=== PATIENT | female | born 1965 | race Caucasian/White ===

== ENCOUNTER → 2018-08-17 | Day surgery (SDC) | payer OTHER ==
[~2018-08-17] MED LIST: FENTANYL CITRATE/PF 100MCG/2 ML INJ ONE; GLUCAGON FOR INJ 1 MG VIAL ONE; HYOSCYAMINE SULFATE 0.5 MG/ML INJ ONE; MIDAZOLAM HCL 2 MG/2 ML VIAL ONE; PROPOFOL IV EMULSION 10 MG/ML 50 ML VIAL ONE
--- OUTSIDE RECORDS SUMMARY | 2018-08-17 06:09 | XMS REPORT | Encounter Summary ---
Author Organization Unknown Address [address] [place] [address] Phone [phone] Care Team Providers Care Freezing Room Worker Name Role Phone Toshia Ascencio MD 3 [phone] Reason for Visit Medical Complaint Instructions 1. Dysuria painful urination (dysuria): care instructions urinalysis, dipstick Bactrim DS 800 mg-160 mg tablet culture, urine 2. Blood in urine Discussion Note: None recorded. Plan of Care Patient Instructions take antibiotics as prescribed. increase fluids. otc tylenol or ibuprofen prn for pain. will contact patient when results of culture are finalized. follow up pcp Reminders Provider Appointments None recorded. Lab Urinalysis, Dipstick 08/26/2016 [facility] Clinic Culture, Urine 08/26/2016 [facility] Referral None recorded. Procedures None recorded. Surgeries None recorded. Imaging None recorded. Medications Name Start Date Bactrim DS 800 mg-160 mg tablet Take 1 tablet every 12 hours by oral route for 7 days. Medications Administered None recorded. Vitals Height Weight BMI Blood Pressure 5 ft 1 in 165 lbs 31.2 122/70 Lab Results Date Name Result Description Value Range Status Urinalysis, Dipstick Color : Jazmine Clarity : Cloudy Leukocytes : Large Nitrites : Negative Urobilinogen : Normal Protein : 100 Ph : 5.0 Blood : Large Specific [place] : 1.015 Ketones : Negative Bilirubin : Negative Glucose Negative Allergies Name Reaction Severity Onset NKDA Problems None recorded. Procedures Date Name Performed by Tubal Ligation Information not available Hysterectomy Information not available Vaccine List None recorded. Social History Smoking Status Never Smoker Past Encounters 08/26/2016 Dysuria; Blood in Urine CALLIE Agustin-C: [address] [place] [address], Ph. History of Present Illness [id number] Reported By: Patient HPI: Location: urethra. Quality: pressure, burning. Severity: same. Duration: constant. Onset/Timing: gradual. Context: not sexually active, no known exposure to STD, no prior history of STDs, history of urine cultures/antibiotic treatment. Modifying factors OTC medication. Associated Symptoms: no fever/chills, no flank pain, no jaundice, no blood in the urine, no pain during urination, no vaginal discharge, no blisters on genitals, no rash on genitals, no muscle aches, no headache, painful inability to urinate, urgency, urinary frequency Review of Systems:ROS as noted in the HPI Review of Systems Basic Reported By: Patient Physical Exam Adult Basic, Adult Female Complete Reported By: Patient
--- OUTSIDE RECORDS SUMMARY | 2018-08-17 06:09 | XMS REPORT | Encounter Summary ---
Author Organization Unknown Address [address] [place] [address] Phone [phone] Reason for Visit Medical Complaint Instructions 1. Dysuria painful urination (dysuria): care instructions urinalysis, dipstick Macrobid 100 mg capsule culture, urine Discussion Note: None recorded. Plan of Care Patient Instructions take antibiotics as prescribed. increase fluids. otc tylenol or ibuprofen prn for pain. will contact patient when results of culture are finalized. follow up pcp Reminders Provider Appointments None recorded. Lab Urinalysis, Dipstick 10/10/2016 [facility] Culture, Urine 10/10/2016 [facility] Referral None recorded. Procedures None recorded. Surgeries None recorded. Imaging None recorded. Medications Name Start Date Macrobid 100 mg capsule Take 1 capsule every 12 hours by oral route for 7 days. Rynatan 9 mg-25 mg tablet Take 1 tablet twice a day by oral route as needed for congestino. Zithromax Z-David 250 mg tablet Take 2 tablets (500 mg) by oral route once daily for 1 day then 1 tablet (250 mg) by oral route once daily for 4 days Medications Administered None recorded. Vitals Height Weight BMI Blood Pressure 5 ft 2 in 160 lbs 29.3 102/76 Lab Results Date Name Specimen Result Interpretation Description Value Range Status Address Urinalysis, Dipstick Color : Yellow [facility]: [address] [place] [address] Clarity : Clear [facility]: [address] [place] [address] Leukocytes : Moderate [facility]: [address] [place] [address] Nitrites : Negative [facility]: [address] [place] [address] Urobilinogen : Normal [facility]: [address] [place] [address] Protein : Negative [facility]: [address] [place] [address] Ph : 5.5 [facility]: [address] [place] [address] Blood : Small [facility]: [address] [place] [address] Specific [place] : 1.015 [facility]: [address] [place] [address] Ketones : Negative [facility]: [address] [place] [address] Bilirubin : Negative [facility]: [address] [facility] Glucose Negative [facility]: [address] [facility] Allergies Code Code System Name Reaction Severity Onset NKDA Problems Name Status Onset Date Source Acute Upper Respiratory Infection Active Encounter Procedures Date Name Performed by Hysterectomy Information not available Tubal Ligation Information not available Vaccine List None recorded. Social History Smoking Status Never Smoker Past Encounters 10/10/2016 Dysuria Mathew Arora, [facility]-C: [address] [place] [address], Ph. History of Present Illness [id number] Reported By: Patient HPI: Location: urethra. Quality: pressure, burning. Severity: same. Duration: constant. Onset/Timing: gradual. Context: history of urine cultures/antibiotic treatment, wipes anterior to posterior, voids after intercourse. Modifying factors OTC medication. Associated Symptoms: no fever/chills, no flank pain, no jaundice, no blood in the urine, no pain during urination, no vaginal discharge, no blisters on genitals, no rash on genitals, no muscle aches, no headache, burning sensation during urination, urgency, urinary frequency Review of Systems:ROS as noted in the HPI Review of Systems Basic Reported By: Patient Physical Exam Adult Basic, Adult Female Complete Reported By: Patient Constitutional: General Appearance: healthy-appearing, well-nourished, well-developed. Level of Distress: NAD. Ambulation: ambulating normally Psychiatric: Mental Status: active and alert Lungs: Respiratory effort: no dyspnea, no tachypnea, no use of accessory muscles, no intercostal retractions. Auscultation: breath sounds normal Cardiovascular: Heart Auscultation: RRR, no murmurs Abdomen: Inspection and Palpation: soft, non-distended, no tenderness, no guarding, no rebound tenderness, no masses, no CVA tenderness
--- OUTSIDE RECORDS SUMMARY | 2018-08-17 06:09 | XMS REPORT | Encounter Summary ---
Author Organization Unknown Address [address] [place] [address] Phone [phone] Care Team Providers Care Typesetter Perforator Operator Name Role Phone Toshia Ascencio MD 3 [phone] Reason for Visit Medical Complaint Instructions 1. [...] Appointments None recorded. Lab Urinalysis, Dipstick 08/26/2016 [facility] Culture, Urine 08/26/2016 [facility] Referral None [...] Ph : 5.0 Blood : Large Specific [place] : 1.015 Ketones : Negative Bilirubin : Negative Glucose Negative Allergies Name Reaction Severity Onset NKDA Problems None recorded. Procedures Date Name Performed by Tubal Ligation Information not available Hysterectomy Information not available Vaccine List None recorded. Social History Smoking Status Never Smoker Past Encounters 08/26/2016 Dysuria; Blood in Urine CALLIE Agustin-C: [address] [place] [address], Ph. History of Present Illness [id number] Reported By: Patient HPI: Location: urethra. Quality: [...]
--- OUTSIDE RECORDS SUMMARY | 2018-08-17 06:09 | XMS REPORT | Encounter Summary ---
Author Organization Unknown Address [address] [place] [address] Phone [phone] Care Team Providers Care Senior Data Architect Name Role Phone Toshia Ascencio MD 3 [phone] Reason for Visit Medical Complaint Instructions 1. [...] Appointments None recorded. Lab Urinalysis, Dipstick 08/26/2016 [facility] Clinic Culture, Urine 08/26/2016 [facility] Referral None [...] Ph : 5.0 Blood : Large Specific [place] : 1.015 Ketones : Negative Bilirubin : Negative Glucose Negative Allergies Name Reaction Severity Onset NKDA Problems None recorded. Procedures Date Name Performed by Tubal Ligation Information not available Hysterectomy Information not available Vaccine List None recorded. Social History Smoking Status Never Smoker Past Encounters 08/26/2016 Dysuria; Blood in Urine CALLIE Agustin-C: [address] [place] [address], Ph. History of Present Illness [id number] Reported By: Patient HPI: Location: urethra. Quality: [...] Level of Distress: NAD. Ambulation: ambulating normally Lungs: Respiratory effort: no dyspnea, no tachypnea, no use of accessory muscles, no intercostal retractions. Auscultation: breath sounds normal Cardiovascular: Heart Auscultation: RRR, no murmurs Abdomen: Inspection and Palpation: soft, non-distended, no tenderness, no guarding, no rebound tenderness, no masses, no CVA tenderness
--- OUTSIDE RECORDS SUMMARY | 2018-08-17 06:09 | XMS REPORT | Continuity of Care Document ---
Author Author [facility] Interface Address Unknown Phone Unavailable Problems Problem Status Onset Date Classification Date Reported Comments Source Acute urinary tract infection 04/15/2017 Diagnosis 05/09/2017 [facility] Urinary tract infectious disease 11/01/2016 Diagnosis 11/01/2016 [facility] Dysuria 10/10/2016 Diagnosis 11/01/2016 [facility] Blood in urine 08/26/2016 Diagnosis 08/27/2016 [facility] Acute Upper Respiratory Infection Problem 05/09/2017 [facility] Medications Medication Details Route Status Patient Instructions Ordering Provider Order Date Source Sulfamethoxazole 800 MG / Trimethoprim 160 MG Oral Tablet [Bactrim] Bactrim DS 800 mg-160 mg tablet Take 1 tablet every 12 hours by oral route for 7 days. Active [facility] Carisoprodol 350 MG Oral Tablet carisoprodol 350 mg tablet Active [facility] Ciprofloxacin 500 MG Oral Tablet ciprofloxacin 500 mg tablet Take 1 tablet every 12 hours by oral route as directed for 7 days. Active [facility] NITROFURANTOIN, MACROCRYSTALS 25 MG / Nitrofurantoin, Monohydrate 75 MG Oral Capsule [Macrobid] Macrobid 100 mg capsule Take 1 capsule every 12 hours by oral route for 7 days. Active [facility] Chlorpheniramine Tannate 9 MG / Phenylephrine Tannate 25 MG Oral Tablet Rynatan 9 mg-25 mg tablet Take 1 tablet twice a day by oral route as needed for congestino. Active [facility] Azithromycin 250 MG Oral Tablet Zithromax Z-David 250 mg tablet Take 2 tablets (500 mg) by oral route once daily for 1 day then 1 tablet (250 mg) by oral route once daily for 4 days Active [facility] Acetaminophen 300 MG / Codeine Phosphate 30 MG Oral Tablet acetaminophen 300 mg-codeine 30 mg tablet Active [facility] Ciprofloxacin 500 MG Oral Tablet [Cipro] Cipro 500 mg tablet Take 1 tablet every 12 hours by oral route for 7 days. Active [facility] Diazepam 5 MG Oral Tablet diazepam 5 mg tablet Active [facility] methylprednisolone 4 mg tablets in a dose pack methylprednisolone 4 mg tablets in a dose pack Active [facility] Metronidazole 0.0075 MG/MG Vaginal Gel metronidazole 0.75 % vaginal gel Active [facility] NITROFURANTOIN, MACROCRYSTALS 25 MG / Nitrofurantoin, Monohydrate 75 MG Oral Capsule nitrofurantoin monohydrate/macrocrystals 100 mg capsule TAKE ONE (1) CAPSULE(S) BY MOUTH EVERY TWELVE HOURS FOR 7 DAYS. Active [facility] Sulfamethoxazole 800 MG / Trimethoprim 160 MG Oral Tablet sulfamethoxazole 800 mg-trimethoprim 160 mg tablet Active [facility] tramadol hydrochloride 50 MG Oral Tablet tramadol 50 mg tablet Active [facility] Allergies, Adverse Reactions, Alerts Substance Category Reaction Severity Reaction type Status Date Reported Comments Source Immunizations Immunization Date Given Site Status Last Updated Comments Source Results Order Name Results Value Reference Range Date Interpretation Comments Source Urinalysis macro (dipstick) panel - Urine COLOR : Yellow 05/09/2017 [facility] Urinalysis macro (dipstick) panel - Urine CLARITY : Cloudy 05/09/2017 [facility] Urinalysis macro (dipstick) panel - Urine LEUKOCYTES : Large 05/09/2017 [facility] Urinalysis macro (dipstick) panel - Urine NITRITES : Positive 05/09/2017 [facility] Urinalysis macro (dipstick) panel - Urine UROBILINOGEN : 2 05/09/2017 [facility] Urinalysis macro (dipstick) panel - Urine PROTEIN : 300 05/09/2017 [facility] Urinalysis macro (dipstick) panel - Urine pH : 6.0 05/09/2017 [facility] Urinalysis macro (dipstick) panel - Urine BLOOD : Small 05/09/2017 [facility] Urinalysis macro (dipstick) panel - Urine SPECIFIC GRAV[place] : 1.015 05/09/2017 [facility] Urinalysis macro (dipstick) panel - Urine KETONES : Negative 05/09/2017 [facility] Urinalysis macro (dipstick) panel - Urine BILIRUBIN : Negative 05/09/2017 [facility] Urinalysis macro (dipstick) panel - Urine GLUCOSE Negative 05/09/2017 [facility] Urinalysis macro (dipstick) panel - Urine COLOR : Yellow 05/09/2017 [facility] Urinalysis macro (dipstick) panel - Urine CLARITY : Turbid 05/09/2017 [facility] Urinalysis macro (dipstick) panel - Urine LEUKOCYTES : Large 05/09/2017 [facility] Urinalysis macro (dipstick) panel - Urine NITRITES : Negative 05/09/2017 [facility] Urinalysis macro (dipstick) panel - Urine UROBILINOGEN : Normal 05/09/2017 [facility] Urinalysis macro (dipstick) panel - Urine PROTEIN : Negative 05/09/2017 [facility] Urinalysis macro (dipstick) panel - Urine pH : 7.5 05/09/2017 [facility] Urinalysis macro (dipstick) panel - Urine BLOOD : Negative 05/09/2017 [facility] Urinalysis macro (dipstick) panel - Urine SPECIFIC GRAVITY : 1.015 05/09/2017 [facility] Urinalysis macro (dipstick) panel - Urine KETONES : Negative 05/09/2017 [facility] Urinalysis macro (dipstick) panel - Urine BILIRUBIN : Negative 05/09/2017 [facility] Urinalysis macro (dipstick) panel - Urine GLUCOSE Negative 05/09/2017 [facility] Bacteria identified in Urine by Culture Bacteria identified in Urine by Culture Urine Culture, Routine 04/17/2017 abnormal [facility] Bacteria identified in Urine by Culture Other Antibiotic [Susceptibility] Antimicrobial Susceptibility 04/17/2017 [facility] Urinalysis macro (dipstick) panel - Urine COLOR : Yellow 04/15/2017 [facility] Urinalysis macro (dipstick) panel - Urine CLARITY : Turbid 04/15/2017 [facility] Urinalysis macro (dipstick) panel - Urine LEUKOCYTES : Large 04/15/2017 [facility] Urinalysis macro (dipstick) panel - Urine NITRITES : Negative 04/15/2017 [facility] Urinalysis macro (dipstick) panel - Urine UROBILINOGEN : Normal 04/15/2017 [facility] Urinalysis macro (dipstick) panel - Urine PROTEIN : Negative 04/15/2017 [facility] Urinalysis macro (dipstick) panel - Urine pH : 7.5 04/15/2017 [facility] Urinalysis macro (dipstick) panel - Urine BLOOD : Negative 04/15/2017 [facility] Urinalysis macro (dipstick) panel - Urine SPECIFIC GRAVITY : 1.015 04/15/2017 [facility] Urinalysis macro (dipstick) panel - Urine KETONES : Negative 04/15/2017 [facility] Urinalysis macro (dipstick) panel - Urine BILIRUBIN : Negative 04/15/2017 [facility] Urinalysis macro (dipstick) panel - Urine GLUCOSE Negative 04/15/2017 [facility] Urinalysis macro (dipstick) panel - Urine COLOR : Yellow 11/01/2016 [facility] Urinalysis macro (dipstick) panel - Urine CLARITY : Clear 11/01/2016 [facility] Urinalysis macro (dipstick) panel - Urine LEUKOCYTES : Moderate 11/01/2016 [facility] Urinalysis macro (dipstick) panel - Urine NITRITES : Negative 11/01/2016 [facility] Urinalysis macro (dipstick) panel - Urine UROBILINOGEN : 1 11/01/2016 [facility] Urinalysis macro (dipstick) panel - Urine PROTEIN : 100 11/01/2016 [facility] Urinalysis macro (dipstick) panel - Urine pH : 5.0 11/01/2016 [facility] Urinalysis macro (dipstick) panel - Urine BLOOD : Moderate 11/01/2016 [facility] Urinalysis macro (dipstick) panel - Urine SPECIFIC GRAVITY : 1.015 11/01/2016 [facility] Urinalysis macro (dipstick) panel - Urine KETONES : Negative 11/01/2016 [facility] Urinalysis macro (dipstick) panel - Urine BILIRUBIN : Negative 11/01/2016 [facility] Urinalysis macro (dipstick) panel - Urine GLUCOSE Negative 11/01/2016 [facility] Urinalysis macro (dipstick) panel - Urine COLOR : Yellow 11/01/2016 [facility] Urinalysis macro (dipstick) panel - Urine CLARITY : Clear 11/01/2016 [facility] Urinalysis macro (dipstick) panel - Urine LEUKOCYTES : Moderate 11/01/2016 [facility] Urinalysis macro (dipstick) panel - Urine NITRITES : Negative 11/01/2016 [facility] Urinalysis macro (dipstick) panel - Urine UROBILINOGEN : Normal 11/01/2016 [facility] Urinalysis macro (dipstick) panel - Urine PROTEIN : Negative 11/01/2016 [facility] Urinalysis macro (dipstick) panel - Urine pH : 5.5 11/01/2016 [facility] Urinalysis macro (dipstick) panel - Urine BLOOD : Small 11/01/2016 [facility] Urinalysis macro (dipstick) panel - Urine SPECIFIC GRAVITY : 1.015 11/01/2016 [facility] Urinalysis macro (dipstick) panel - Urine KETONES : Negative 11/01/2016 [facility] Urinalysis macro (dipstick) panel - Urine BILIRUBIN : Negative 11/01/2016 [facility] Urinalysis macro (dipstick) panel - Urine GLUCOSE Negative 11/01/2016 [facility] Bacteria identified in Urine by Culture Bacteria identified in Urine by Culture Urine Culture, Routine 10/12/2016 abnormal [facility] Bacteria identified in Urine by Culture Other Antibiotic [Susceptibility] Antimicrobial Susceptibility 10/12/2016 [facility] Urinalysis macro (dipstick) panel - Urine COLOR : Yellow 10/10/2016 [facility] Urinalysis macro (dipstick) panel - Urine CLARITY : Clear 10/10/2016 [facility] Urinalysis macro (dipstick) panel - Urine LEUKOCYTES : Moderate 10/10/2016 [facility] Urinalysis macro (dipstick) panel - Urine NITRITES : Negative 10/10/2016 [facility] Urinalysis macro (dipstick) panel - Urine UROBILINOGEN : Normal 10/10/2016 [facility] Urinalysis macro (dipstick) panel - Urine PROTEIN : Negative 10/10/2016 [facility] Urinalysis macro (dipstick) panel - Urine pH : 5.5 10/10/2016 [facility] Urinalysis macro (dipstick) panel - Urine BLOOD : Small 10/10/2016 [facility] Urinalysis macro (dipstick) panel - Urine SPECIFIC GRAVITY : 1.015 10/10/2016 [facility] Urinalysis macro (dipstick) panel - Urine KETONES : Negative 10/10/2016 [facility] Urinalysis macro (dipstick) panel - Urine BILIRUBIN : Negative 10/10/2016 [facility] Urinalysis macro (dipstick) panel - Urine GLUCOSE Negative 10/10/2016 [facility] Urinalysis macro (dipstick) panel - Urine COLOR : Jazmine 08/26/2016 [facility] Urinalysis macro (dipstick) panel - Urine CLARITY : Cloudy 08/26/2016 [facility] Urinalysis macro (dipstick) panel - Urine LEUKOCYTES : Large 08/26/2016 [facility] Urinalysis macro (dipstick) panel - Urine NITRITES : Negative 08/26/2016 [facility] Urinalysis macro (dipstick) panel - Urine UROBILINOGEN : Normal 08/26/2016 [facility] Urinalysis macro (dipstick) panel - Urine PROTEIN : 100 08/26/2016 [facility] Urinalysis macro (dipstick) panel - Urine pH : 5.0 08/26/2016 [facility] Urinalysis macro (dipstick) panel - Urine BLOOD : Large 08/26/2016 [facility] Urinalysis macro (dipstick) panel - Urine SPECIFIC GRAVITY : 1.015 08/26/2016 [facility] Urinalysis macro (dipstick) panel - Urine KETONES : Negative 08/26/2016 [facility] Urinalysis macro (dipstick) panel - Urine BILIRUBIN : Negative 08/26/2016 [facility] Urinalysis macro (dipstick) panel - Urine GLUCOSE Negative 08/26/2016 [facility] Vital Signs Vital Sign Value Date Comments Source Diastolic (mm Hg) 80 05/09/2017 [facility] Height 62 05/09/2017 [facility] Systolic (mm Hg) 122 05/09/2017 [facility] Weight 160 05/09/2017 [facility] Diastolic (mm Hg) 80 04/15/2017 [facility] Height 62 04/15/2017 [facility] Systolic (mm Hg) 114 04/15/2017 [facility] Weight 160 04/15/2017 [facility] Diastolic (mm Hg) 92 11/01/2016 [facility] Height 62 11/01/2016 [facility] Systolic (mm Hg) 142 11/01/2016 [facility] Weight 160 11/01/2016 [facility] Diastolic (mm Hg) 76 10/10/2016 [facility] Height 62 10/10/2016 [facility] Systolic (mm Hg) 102 10/10/2016 [facility] Weight 160 10/10/2016 [facility] Diastolic (mm Hg) 70 08/26/2016 [facility] Height 61 08/26/2016 [facility] Systolic (mm Hg) 122 08/26/2016 [facility] Weight 165 08/26/2016 [facility] Encounters Location Location Details Encounter Type Encounter Number Reason For Visit Attending Provider ADM Date DC Date Status Source [place] - [facility] - [id number] CALLIE Agustin-C: [address], [place] [address], Ph. [phone] [id number] Mathew Bonillaen 08/26/2016 [facility] [place] [facility] - [id number] CALLIE Agustin-C: [address], [place] [address], Ph. [phone] [id number] Mathew Heathuyen 08/26/2016 [facility] [place] [facility] - [id number] CALLIE Agustin-C: [address], [place] [address], Ph. [id number] Mathew Heathuyen 08/26/2016 [facility] [place] [facility] - [id number] CALLIE Agustin-C: [address], [place] [address], Ph. [id number] Mathew Bonillaen 10/10/2016 [facility] [place] [facility] - [id number] Mathew JORGE AroraP-C: [address], [place] [address], Ph. [id number] Mathew Bonillaen 10/10/2016 [facility] [place] [facility] - [id number] ERICA GabrielC: [address], [place] [address], Ph. [id number] Genia Raza 11/01/2016 [facility] [place] [facility] - [id number] Michelle Lexie, [employer]-C: [address] [place] [address], Ph. [id number] Michelle Hilarioy 04/15/2017 [facility] [place] [facility] - [id number] Angela Lexie, [employer]-C: [address] [place] [address], Ph. [id number] Michelle Keeroy 04/15/2017 [facility] [place] [facility] - [id number] Mathew Arora, [employer]-C: [address] [place] [address], Ph. [id number] Mathew Arora 05/09/2017 [facility] Procedures Procedure Code Date Perfomer Comments Source Tubal Ligation [facility] Hysterectomy [facility]
--- OUTSIDE RECORDS SUMMARY | 2018-08-17 06:10 | XMS REPORT | Encounter Summary ---
Author Organization Unknown Address [address] [place] [address] Phone [phone] Reason for Visit Medical Complaint Instructions 1. Acute urinary tract infection urinalysis, dipstick Macrobid 100 mg capsule culture, urine Discussion Note: None recorded. Patient educational handouts: No information available. Plan of Care Patient Instructions take antibiotics as prescribed. increase fluids. otc tylenol or ibuprofen prn for pain. will contact patient when results of culture are finalized. follow up pcp Reminders Provider Appointments None recorded. Lab Urinalysis, Dipstick 05/09/2017 [facility] Culture, Urine 05/09/2017 [facility] Referral None recorded. Procedures None recorded. Surgeries None recorded. Imaging None recorded. Medications Name Start Date Macrobid 100 mg capsule Take 1 capsule every 12 hours by oral route for 7 days. Medications Administered None recorded. Vitals Height Weight BMI Blood Pressure 5 ft 2 in 160 lbs 29.3 kg/m2 122/80 mm[Hg] Lab Results Date Name Specimen Result Interpretation Description Value Range Status Address 04/15/2017 Culture, Urine URINE ABNORMAL Urine Culture, Routine final report Final [facility]: [id number] [place] URINE ABNORMAL Result 1 escherichia coli Final [facility]: [address] URINE Antimicrobial Susceptibility mihead Final [facility]: [address] [place] Urinalysis, Dipstick Color : Yellow [facility]: [address] [place] [address] Clarity : Cloudy [facility]: [address] [place] [address] Leukocytes : Large [facility]: [address] [place] [address] Nitrites : Positive [facility]: [address] [place] [address] Urobilinogen : 2 [facility]: [address] [place] [address] Protein : 300 [facility]: [address] [place] [address] Ph : 6.0 [facility]: [address] [place] [address] Blood : Small [facility]: [address] [place] [address] Specific [place] : 1.015 [facility]: [address] [place] [address] Ketones : Negative [facility]: [facility] Bilirubin : Negative [facility]: [address] [place] [address] Glucose Negative [facility]: 9 [facility] Urinalysis, Dipstick Color : Yellow [facility]: 9 [facility] Clarity : Turbid [facility]: 9 [facility] Leukocytes : Large [facility]: 9 [facility] Nitrites : Negative [facility]: [address] [place] [address] Urobilinogen : Normal [facility]: 9 [facility] Protein : Negative [facility]: [address] [place] [address] Ph : 7.5 [facility]: [address] [place] [address] Blood : Negative [facility]: [address] [place] [address] Specific [place] : 1.015 [facility]: 9 [facility] Ketones : Negative [facility]: [address] [place] [address] Bilirubin : Negative [facility]: [address] [place] [address] Glucose Negative [facility]: [address] [place] [address] Allergies Code Code System Name Reaction Severity Status Onset NKDA Problems Name Status Onset Date Source Acute Upper Respiratory Infection Active Encounter Procedures Date Name Performed by Hysterectomy Information not available Tubal Ligation Information not available Vaccine List None recorded. Social History Smoking Status Never Smoker Past Encounters 05/09/2017 Acute Urinary Tract Infection Mathew Arora, [facility]: [address] [place] [address], Ph. 04/15/2017 Acute Urinary Tract Infection CALLIE Donis-[facility]: [address] [place] [address], Ph. History of Present Illness [id number] Reported By: Patient HPI: Location: urethra. Quality: pressure, burning. Severity: mild. Duration: constant. Context: history of urine cultures/antibiotic treatment, wipes anterior to posterior, voids after intercourse. Associated Symptoms: no fever/chills, no flank pain, [...]
--- OUTSIDE RECORDS SUMMARY | 2018-08-17 06:10 | XMS REPORT | Encounter Summary ---
Author Organization Unknown Address [address] [place] [address] Phone [phone] Reason for Visit Medical Complaint Instructions 1. Urinary tract infectious disease Cipro 500 mg tablet urinalysis, dipstick culture, urine Discussion Note: None recorded. Patient educational handouts: No information available. Plan of Care Patient Instructions Drink plenty of water and wear cotton underwear. Please finish all antibiotics, even if you are feeling better. This prevents the infection from coming back. Please seek care (urologist) if symptoms do not resolve in 1 week. Reminders Provider Appointments None recorded. Lab Urinalysis, Dipstick 11/01/2016 [facility] Culture, Urine 11/01/2016 [facility] Referral None recorded. Procedures None recorded. Surgeries None recorded. Imaging None recorded. Medications Name Start Date acetaminophen 300 mg-codeine 30 mg tablet carisoprodol 350 mg tablet Cipro 500 mg tablet Take 1 tablet every 12 hours by oral route for 7 days. diazepam 5 mg tablet methylprednisolone 4 mg tablets in a dose pack metronidazole 0.75 % vaginal gel nitrofurantoin monohydrate/macrocrystals 100 mg capsule TAKE ONE (1) CAPSULE(S) BY MOUTH EVERY TWELVE HOURS FOR 7 DAYS. Rynatan 9 mg-25 mg tablet Take 1 tablet twice a day by oral route as needed for congestino. sulfamethoxazole 800 mg-trimethoprim 160 mg tablet tramadol 50 mg tablet Zithromax Z-David 250 mg tablet Take 2 tablets (500 mg) by oral route once daily for 1 day then 1 tablet (250 mg) by oral route once daily for 4 days Medications Administered None recorded. Vitals Height Weight BMI Blood Pressure 5 ft 2 in 160 lbs 29.3 kg/m2 142/92 mm[Hg] Lab Results Date Name Specimen Result Interpretation Description Value Range Status Address 10/10/2016 Culture, Urine URINE ABNORMAL Urine Culture, Routine final report Final [facility]: [address], [place] URINE ABNORMAL Result 1 escherichia coli Final [facility]: [address], [place] URINE Antimicrobial Susceptibility mihead Final [facility]: [address], [place] Urinalysis, Dipstick Color : Yellow [facility]: [facility] Clarity : Clear [facility]: [facility] Leukocytes : Moderate [facility]: [facility] Nitrites : Negative [facility]: [facility] Urobilinogen : 1 [facility]: [address] [place] [address] Protein : 100 [facility]: [facility] Ph : 5.0 [facility]: [facility] Blood : Moderate [facility]: [facility] Specific [place] : 1.015 [facility]: [facility] Ketones : Negative [facility]: [facility] Bilirubin : Negative [facility]: [facility] Glucose Negative [facility]: [facility] Urinalysis, Dipstick Color : Yellow [facility]: [facility] Clarity : Clear [facility]: [facility] Leukocytes : Moderate [facility]: [facility] Nitrites : Negative [facility]: [facility] Urobilinogen : Normal [facility]: [facility] Protein : Negative [facility]: [facility] Ph : 5.5 [facility]: [facility] Blood : Small [facility]: [address] [place] [address] Specific [place] : 1.015 [facility]: [facility] Ketones : Negative [facility]: [address] [place] [address] Bilirubin : Negative [facility]: 9 [facility] Glucose Negative [facility]: [facility] Allergies Code Code System Name Reaction Severity Onset NKDA Problems Name Status Onset Date Source Acute Upper Respiratory Infection Active Encounter Procedures Date Name Performed by Hysterectomy Information not available Tubal Ligation Information not available Vaccine List None recorded. Social History Smoking Status Never Smoker Past Encounters 11/01/2016 Urinary Tract Infectious Disease Genia Raza PA-C: [address] [place] [address], Ph. 10/10/2016 Dysuria NITO AgustinC: [address] [place] [address], Ph. History of Present Illness [id number] Reported By: Patient HPI: Location: urethra. Quality: pain, pressure, burning. Severity: worsening. Duration: started 7 days. Onset/Timing: worse. Context: no known exposure to STD, no prior history of STDs, history of urine cultures/antibiotic treatment. Associated Symptoms: no fever/chills, no flank pain, no jaundice, no blood in the urine, no pain during urination, no vaginal discharge, no urgency, no blisters on genitals, no rash on genitals, burning sensation during urination, feeling of incomplete emptying of bladder Review of Systems Basic Reported By: Patient Constitutional: Constitutional: no fever Eyes: Eyes: no eye complaints [id number]-[id number]-Throat: Ears: no ear complaints. Nose: no nose/sinus problems. Mouth/Throat: no sore throat, no bleeding gums, no mouth complaints, no teeth problems Cardiovascular: Cardiovascular: no chest pain, no shortness of breath, no known heart murmur Respiratory: Respiratory: no cough, no wheezing, no shortness of breath Gastrointestinal: Gastrointestinal: no abdominal pain, no vomiting / diarrhea Genitourinary: Genitourinary: no discharge, dysuria Physical Exam Adult Basic, Adult Female Complete Reported By: Patient Constitutional: General Appearance: healthy-appearing, well-nourished, well-developed. Level of Distress: NAD. Ambulation: ambulating normally Psychiatric: Mental Status: active and alert. Orientation: to time, to place, to person Lungs: Respiratory effort: no dyspnea, no tachypnea, no use of accessory muscles, no intercostal retractions. Percussion: no dullness, flatness, or hyperresonance. Auscultation: breath sounds normal Cardiovascular: Heart Auscultation: RRR, no murmurs. Neck vessels: no carotid bruits. Pulses including femoral / pedal: normal throughout Abdomen: Inspection and Palpation: no CVA tenderness
--- OUTSIDE RECORDS SUMMARY | 2018-08-17 06:10 | XMS REPORT | Encounter Summary ---
Author Organization Unknown Address [address] [place] [address] Phone [phone] Reason for Visit Medical Complaint Instructions 1. Acute urinary tract infection ciprofloxacin 500 mg tablet urinalysis, dipstick culture, urine Discussion Note Pt is in NAD; Verbalizes understanding of all instructions with no questions at this time. Patient educational handouts: No information available. Plan of Care Patient Instructions Recommend proper hydration and frequent urination. Avoid douching, Recommend urinating after sexual intercourse. Recommend wipe front to back after urinating. Avoid using tubs. Take medications as prescribed. Return to clinic or follow up with your PCP or a urologist within 2-3 days if symptoms worsen as discussed. Reminders Provider Appointments None recorded. Lab Urinalysis, Dipstick 04/15/2017 [facility] Culture, Urine 04/15/2017 [facility] Referral None recorded. Procedures None recorded. Surgeries None recorded. Imaging None recorded. Medications Name Start Date carisoprodol 350 mg tablet ciprofloxacin 500 mg tablet Take 1 tablet every 12 hours by oral route as directed for 7 days. Medications Administered None recorded. Vitals Height Weight BMI Blood Pressure 5 ft 2 in 160 lbs 29.3 kg/m2 114/80 mm[Hg] Lab Results Date Name Specimen Result Interpretation Description Value Range Status Address Urinalysis, Dipstick Color : Yellow [facility]: [address] [place] [address] Clarity : Turbid [facility]: [address] [place] [address] Leukocytes : Large [facility]: [address] [place] [address] Nitrites : Negative [facility]: [address] [place] [address] Urobilinogen : Normal [facility]: [address] [place] [address] Protein : Negative [facility]: [address] [place] [address] Ph : 7.5 [facility]: [address] [place] [address] Blood : Negative [facility]: [address] [place] [address] Specific [place] : 1.015 [facility]: [address] [place] [address] Ketones : Negative [facility]: [address] [place] [address] Bilirubin : Negative [facility]: 9 [facility] Glucose Negative [facility]: 9 [facility] Allergies Code Code System Name Reaction Severity Status Onset NKDA Problems Name Status Onset Date Source Acute Upper Respiratory Infection Active Encounter Procedures Date Name Performed by Hysterectomy Information not available Tubal Ligation Information not available Vaccine List None recorded. Social History Smoking Status Never Smoker Past Encounters 04/15/2017 Acute Urinary Tract Infection Michelle Keeroy, [facility]: [address] [place] [address], Ph. History of Present Illness [id number] Reported By: Patient HPI: Location: urethra; bladder. Quality: pain, pressure. Severity: worsening, moderate. Duration: constant. Onset/Timing: worse, gradual. Context: no known exposure to STD, no prior history of STDs, sexually active, heterosexual, vaginal intercourse, history of urine cultures/antibiotic treatment, wipes anterior to posterior, voids after intercourse. Modifying factors nothing makes it worse. Associated Symptoms: no fever/chills, no jaundice, no blood in the urine, no vaginal discharge, no blisters on genitals, no rash on genitals, no muscle aches, no headache, flank pain, pain during urination, urinary frequency; bladder pressure Review of Systems:ROS as noted in the HPI Review of Systems Basic Reported By: Patient Physical Exam Adult Basic, Adult Female Complete, Adult Male Complete Reported By: Patient Constitutional: General Appearance: healthy-appearing, well-nourished, well-developed. Level of Distress: NAD. Ambulation: ambulating normally Psychiatric: Mental Status: active and alert. Orientation: to time, to place, to person Eyes: Lids and Conjunctivae: non-injected, no pallor; no periorbital edema Neck: Neck: supple. Lymph Nodes: no cervical LAD Lungs: Respiratory effort: no dyspnea, no tachypnea, no use of accessory muscles, no intercostal retractions. Auscultation: breath sounds normal, good air movement Cardiovascular: Heart Auscultation: RRR, no murmurs Musculoskeletal:: Extremities: no edema Neurologic: Gait and Station: normal gait Abdomen: Bowel Sounds: normal. Inspection and Palpation: soft, non-distended, no tenderness, no guarding, no rebound tenderness, no masses, CVA tenderness. Hernia: none palpable
[2018-08-17 09:35] VITALS: BP 130/91
--- NOTE | 2018-08-17 16:16 | Operative Report ---
DATE OF PROCEDURE: 08/17/2018 SURGEON: Tino Alexander MD PROCEDURE: Colonoscopy with polypectomy. INDICATIONS FOR COLONOSCOPY: Colorectal cancer screening. MEDICATIONS: The patient was done under MAC, please see anesthesiologist's note. PROCEDURE IN DETAIL: With the patient in left lateral decubitus position, flexible fiberoptic Olympus colonoscope was inserted into the rectum with ease and advanced all the way to the cecum. Prep overall was suboptimal with retained stools in the colon, primarily in the right colon. One polyp was snared from the cecum and polypectomy site was hemoclipped. One polyp was snared from the ascending colon and polypectomy site was hemoclipped. The rest of the ascending, transverse, and descending appeared to be within normal limits. One polyp was snared, one polyp was hot biopsied from the sigmoid colon. Two polyps were hot biopsied from the rectum. Mucosa overlying the rectum revealed some patchy erythema and low-grade edema and biopsies were obtained. The scope was then retroflexed into the distal rectum and small internal hemorrhoids were noted, none of which was actively bleeding. The scope was then straightened out, it was subsequently withdrawn. The patient tolerated the procedure well. IMPRESSION: 1. Cecal polyp approximately 5 mm, removed per snare electrocautery and polypectomy site hemoclipped. 2. Ascending colon polyp, removed per snare electrocautery and site hemoclipped. 3. Sigmoid colon polyps x2, one snared and one hot biopsied. 4. Rectal polyps x2, hot biopsied. 5. Proctitis, biopsied. 6. Internal hemorrhoids, none actively bleeding. 7. Suboptimal prep. PLAN: Follow up histology. Initiate high-fiber, low-fat diet. Initiate high-fiber supplement. The patient will need a repeat colonoscopy after a better prep. Tino Alexander MD [facility]/TIKI /[id number]
== END | disposition home or self-care (01) ==
LOC: OR 05:55
PROVIDERS: ATTEND Internal Medicine Gastroenterology
DX: Z12.11 Encounter for screening for malignant neoplasm of colon (principal); D12.0 Benign neoplasm of cecum; D12.2 Benign neoplasm of ascending colon; D12.5 Benign neoplasm of sigmoid colon; K62.1 Rectal polyp; K59.09 Other constipation; K62.89 Other specified diseases of anus and rectum; K64.8 Other hemorrhoids; K92.1 Melena; R12 Heartburn; E66.9 Obesity, unspecified; R03.0 Elevated blood-pressure reading, without diagnosis of hypertension; R00.1 Bradycardia, unspecified; Z01.810 Encounter for preprocedural cardiovascular examination; Z68.30 Body mass index [BMI] 30.0-30.9, adult
CPT/HCPCS: 45380; 45384; 45385; 93005; J1610; J1980; J2250; J2704; 44391

== ENCOUNTER → 2020-09-25 | Day surgery (SDC) | payer OTHER ==
[2020-09-25 09:45] VITALS: BP 105/73
== END | disposition home or self-care (01) ==
LOC: OR 08:02
PROVIDERS: ATTEND Internal Medicine Gastroenterology
DX: Z09 Encounter for follow-up examination after completed treatment for conditions other than malignant neoplasm (principal); D12.2 Benign neoplasm of ascending colon; K62.1 Rectal polyp; K62.89 Other specified diseases of anus and rectum; K64.8 Other hemorrhoids; I49.8 Other specified cardiac arrhythmias; Z01.810 Encounter for preprocedural cardiovascular examination; Z86.16 Personal history of COVID-19; Z86.19 Personal history of other infectious and parasitic diseases
CPT/HCPCS: 45378; 45384; 93005